=== PATIENT | male | born 1965 | race Caucasian/White ===

== ENCOUNTER 2019-05-04 15:15 | Observation (INO) | payer BC, SELFPAY ==
[2019-05-04] VITALS (9 sets, daily range): BP systolic 138–154; BP diastolic 74–94; PULSE 64–89; RESP 15–18; TEMP 36.1–36.7; O2SAT 95–99; BMI 26.4; BMI 26.5; BMI 25.6
--- NOTE | 2019-05-04 15:46 | EKG12_ITS ---
Test Reason : CP Blood Pressure : / mmHG Vent. Rate : 069 BPM Atrial Rate : 069 BPM P-R Int : 158 ms QRS Dur : 098 ms QT Int : 410 ms P-R-T Axes : 064 039 020 degrees QTc Int : 439 ms Normal sinus rhythm Normal ECG Confirmed by LAYA VINCENT, RONY ([id number]), mapping editor VALERIE CHAN ([id number]) on 05/08/2019 9:05:17 AM Referred By: No Primary Care Physician Confirmed By:RONY ASIF MD
--- NOTE | 2019-05-04 15:46 | RAD_ITS ---
STUDY: X-RAY CHEST REASON FOR EXAM: Male, 54 years old. CHEST PAIN, TIGHTNESS ON AND OFF X 1 WEEK TECHNIQUE: Portable chest. COMPARISON: None. FINDINGS: The lungs are clear and expanded. There is no demonstrated pleural abnormality. Normal size heart. Normal mediastinum and laura. Normal visualized pulmonary arteries. Normal visualized aortic arch and descending thoracic aorta. Normal visualized thoracic spine. Normal visualized ribs, clavicles, and shoulders. There is no demonstrated abnormality of the visualized soft tissue structures of the upper abdomen. RAD/Chest 1 View (Portable) IMPRESSION: Normal x-ray examination of the chest. Electronically Signed: Diane Howell MD at 16:03 EST Tel , Service support ,
--- NOTE | 2019-05-04 15:48 | ED.VISSUMM ---
- ER Visit Summary Date of Service: 05/04/19 Chief Complaint: Chest pain History of Present Illness: The patient is a 54 M presenting with chest pain. Patient states this has been intermittent over the past couple of days. He has associated shortness of breath, dizziness. He states it is worsened with walking. At worst it is 4 out of 10, currently 1 out of 10. He describes a pressure sensation and heaviness mid chest. The pain occasionally radiates to the left side of his jaw. He is not a smoker. He denies CAD risk factors. He does not see a physician regularly. Physical Examination: Vitals are stable. Patient is afebrile. Alert no acute distress. HEENT exam is unremarkable. Neck is supple. Lungs are clear and equal bilaterally. Heart is regular rate and rhythm. Abdomen is soft nontender nondistended. Extremities are unremarkable. Skin is warm and dry. No focal neurologic deficit. Remainder of exam is unremarkable. Emergency Department Course and Treatment: Patient was given aspirin on arrival. EKG is sinus rhythm rate of 69 with no acute ischemic changes. Chest x-ray shows no acute process. CBC, chemistries unremarkable. Troponin is negative. Patient is resting comfortably on reevaluation. Will discuss with hospitalist for observation. Disposition: Observation Impression: Chest pain This note was generated with [employer] dictation software. It may contain incorrect words, spelling, and punctuation that were not noted in review of the chart prior to signing
[2019-05-04] MEDS: Aspirin 81 MG TAB.CHEW 324 MG PO (15:57)
[2019-05-04 16:15] LABS: Absolute Lymphocyte Count 1.57 X10^3/uL (0.83-4.51); Absolute Neutrophil Count 5.1 X10^3/uL (2.0-7.7); Basophil# 0.04 X10^3/uL; Basophil% 0.5 % (0-1); Eosinophil# 0.08 X10^3/uL; Eosinophils% 1.1 % (0-5); Hematocrit 44.7 % (40-54); Hemoglobin 15.2 g/dL (13.0-16.5); Lymphocyte # 1.57 X10^3/ul (4.0); Lymphocyte % 21.2 % (19-41); Mean Corpuscular Hgb 30.2 pg (27.0-32.0); Mean Corpuscular Volume 88.7 fL (80-94); Mean Platelet Vol. 11.6 fl (6.2-12.0); Monocyte# 0.58 X10^3/uL; Monocyte% 7.8 % (0-10); NRBC Flagged by Analyzer 0 % (0-5); Neutrophil # 5.12 X10^3/uL (2.7-7.7); Neutrophil % 69.1 % (47-70); Platelet Count 153 K/mm3 (150-450); RBC Distribution Width CV 12.7 % (11.6-14.6); RBC Distribution Width SD 41.2 fl (35.1-43.9); Red Blood Count 5.04 M/mm3 (4.6-6.2); White Blood Count 7.4 K/mm3 (4.4-11.0)
[2019-05-04 16:26] LABS: Anion Gap 5 (5-15); BUN 16 mg/dL (7-18); BUN/Creat Ratio 14.8 RATIO (10-20); Calcium,Total 9.5 mg/dL (8.5-10.1); Chloride 106 mmol/L (98-107); Creatinine, Serum 1.08 mg/dL (0.70-1.30); EST Glomerular Filtration Rate 75 mL/min (>60); Est Glom Filt Rate - Afr Amer 91 mL/min (>60); Estimated Creatinine Clearance 91.28 ml/min; Glucose 99 mg/dL (74-106); Potassium 3.9 mmol/L (3.5-5.1); Sodium Level 141 mmol/L (136-145)
--- NOTE | 2019-05-04 17:13 | HP.PCM_ITS ---
<Felipa Khalil - Last Filed: 05/04/19 17:32> Problem List (1) Chest pain Status: Acute History of Present Illness Date of Admission: 05/04/19 Chief Complaint: Chest pain, dizziness. The patient is a 54 year old M who presents the emergency room due to chest pain and dizziness intermittently. Patient reports since last Tuesday he has felt foggy with mild dizziness upon standing and with ambulation. He also reports intermittent tightness across to his chest which does seem to be worse with exertion however he also states he notices it more when he is resting in the evening. He denies palpitations, pain radiation. He denies associated shortness of breath although he reports while driving today he did have an episode where he panicked and had trouble catching his breath which quickly resolved. Patient denies any history of heart disease or prior work-up related to his heart. He denies syncope, presyncope. He denies any other past medical history. Past Medical History Allergies No Known Allergies Allergy (Verified 05/04/19 15:16) Home Medications: Ambulatory Orders Medication Instructions Recorded NK 05/04/19 Surgical History: - - Cholecystectomy, groin hernia repair Psychiatric History: No pertinent psych hx Lives: Spouse/ Significant Other Smoking Status: Former smoker Tobacco Use: Non-smoker Alcohol: None Drugs: None - *Family History Maternal History Items: - - Patient reports he suspects maternal heart issues but does not know any specific heart disease that she had. Paternal History Items: - - Pancreatic cancer, diabetes Review of Systems Constitutional: Denies: Chills, Fever, Weight Change HEENT: Denies: Head Aches, Sinus Congestion, Sinus Drainage Cardiovascular: Reports: Chest Pain, Light Headedness. Denies: Edema, Palpitations, Syncope Respiratory: Denies: Cough, Shortness of breath at rest, Sputum production Gastrointestinal: Denies: Abdominal Pain, Nausea, Vomiting Genitourinary: Denies: Dysuria Musculoskeletal: Denies: Joint Pain, Joint Tenderness Skin: Denies: Rash, Wounds Neurological: Denies: Numbness, Tingling, Focal weakness Psychiatric: Denies: Anxiety, Depression, Homicidal Ideations, Suicidal Ideations Hematologic/ Lymphatic: Denies: Easy Bruising, Easy Bleeding VTE Information - Inpt Only VTE Present on Admission: No VTE Mechan Device Prophylaxis: None VTE Pharm Prophylaxis ordered?: No Reason prophylaxis not ordered:: Treatment Not Indicated Patient Problems: Active and Suspected Problems Chest pain (Acute) - Physical Exam Vitals/I&O's: Vital Signs Temp Pulse Resp BP Pulse Ox 97.7 F L 66 15 147/91 H 97 05/04/19 15:17 05/04/19 17:03 05/04/19 17:03 05/04/19 17:03 05/04/19 17:03 Oxygen Delivery Method Room Air Weight: 211 lb 10.3 oz Body Mass Index (BMI) 26.4 General: Alert, Oriented x3, Cooperative HEENT: Atraumatic, PERRLA, EOMI, Normocephalic Neck: Supple, No JVD, Negative Carotid Bruits Lungs: Clear to auscultation, Normal air movement Cardiovascular: Regular rate, Regular Rhythm, Normal S1, Normal S2, No murmurs Abdomen: Bowel Sounds Present, Soft, Non Tender, Non-Distended Extremities: No clubbing, No cyanosis, No edema, Capillary Refill Less than 3 Seconds Skin: No rashes, No breakdown Musculoskeletal: No Tenderness to Palpation of Joints or Extremities Neurological: Cranial nerves II-XII grossly intact, Neuro grossly intact Psych/Mental Status: Normal Affect, Appropriate Laboratory Results 05/04/19 15:20: WBC 7.4, RBC 5.04, Hgb 15.2, Hct 44.7, MCV 88.7, MCH 30.2, MCHC 34.0, RDW Std Deviation 41.2, RDW Coeff of Brady 12.7, Plt Count 153, MPV 11.6, Immature Gran % (Auto) 0.300, Neut % (Auto) 69.1, Lymph % (Auto) 21.2, [place] % (Auto) 7.8, Eos % (Auto) 1.1, Baso % (Auto) 0.5, Absolute Neuts (auto) 5.1, Absolute Lymphs (auto) 1.57, Nucleated RBC % 0 05/04/19 15:20: Sodium 141, Potassium 3.9, Chloride 106, Carbon Dioxide 30.0, Anion Gap 5, BUN 16, Creatinine 1.08, Estim Creat Clear Calc 91.28, Est GFR (MDRD) Af Amer 91, Est GFR (MDRD) Non-Af 75, BUN/Creatinine Ratio 14.8, Glucose 99, Calcium 9.5, Troponin I < 0.015 Assessment/Plan All Active Problems Chest pain (Acute) 1. Atypical chest pain-rule out ACS. EKG without acute changes. Chest x-ray unremarkable. Initial troponin negative. Trend enzymes. CBC and BMP unremarkable. Stress test in a.m. Check orthostatic vitals. Check TSH, mag. Lipid panel in a.m. 2. Mildly increased blood pressure-suspect secondary to anxiety which may be contributing to #1 as well. Monitor blood pressure overnight. PRN hydralazine for systolic blood pressure greater than 160. DVT prophylaxis-not indicated, low risk-early ambulation. This patient was seen by VERONICA Chapa under the supervision of Dr. Bradley. <Chelsie Bradley - Last Filed: 05/04/19 18:23> History of Present Illness The patient is a 54 year old M [] Past Medical History Allergies No Known Allergies Allergy (Verified 05/04/19 15:16) - Physical Exam Vitals/I&O's: Vital Signs Temp Pulse Resp BP Pulse Ox 97 F L 73 16 141/94 H 99 05/04/19 17:41 05/04/19 17:41 05/04/19 17:41 05/04/19 17:41 05/04/19 17:41 Oxygen Delivery Method Room Air Weight: 205 lb 4.006 oz Body Mass Index (BMI) 25.6 Laboratory Results 05/04/19 15:20: WBC 7.4, RBC 5.04, Hgb 15.2, Hct 44.7, MCV 88.7, MCH 30.2, MCHC 34.0, RDW Std Deviation 41.2, RDW Coeff of Brady 12.7, Plt Count 153, MPV 11.6, Immature Gran % (Auto) 0.300, Neut % (Auto) 69.1, Lymph % (Auto) 21.2, [place] % (Auto) 7.8, Eos % (Auto) 1.1, Baso % (Auto) 0.5, Absolute Neuts (auto) 5.1, Absolute Lymphs (auto) 1.57, Nucleated RBC % 0 05/04/19 15:20: Sodium 141, Potassium 3.9, Chloride 106, Carbon Dioxide 30.0, Anion Gap 5, BUN 16, Creatinine 1.08, Estim Creat Clear Calc 91.28, Est GFR (MDRD) Af Amer 91, Est GFR (MDRD) Non-Af 75, BUN/Creatinine Ratio 14.8, Glucose 99, Calcium 9.5, Troponin I < 0.015 05/04/19 15:20: Magnesium 2.1, TSH 2.06 Current Medications Acetaminophen (Tylenol) 650 mg PO Q6H PRN PRN PRN Reason: Pain Score 1-3/Temp > 100.7 F Aspirin (Ecotrin) 81 mg PO DAILY@0800 JOHN Hydralazine HCl (Apresoline Iv) 5 mg IV Q6H PRN PRN PRN Reason: BLOOD PRESSURE Ondansetron HCl (Zofran) 4 mg IV Q8H PRN PRN PRN Reason: NAUSEA/VOMITING Oxycodone HCl (Oxyir) 5 mg PO Q4H PRN PRN PRN Reason: Pain Score 4-5/10 Sodium Chloride () 10 - 40 ml IV UD PRN PRN Reason: SALINE FLUSH Assessment/Plan Patient seen by Felipa Khalil NP-C under my supervision. Patient is a 54-year-old male admitted with complaint of chest pain. Patient has not seen a physician in nearly 10 years and as far as he knows he does not have any active or chronic medical conditions. Chest pain has been going on for about a week now but gradually worsened. It was retrosternal and pressure-like and he described it as a tightness across his chest. He states it gets better when he rests whilst watching TV and is aggravated by exertion. He had most of shortness of breath though he said while driving today he thought he had a panic attack which made the pain worse. Review of symptoms otherwise negative. He has no personal family history of any heart disease. Initial troponin was negative and EKG showed no acute ST changes. He has been admitted to be managed for chest pain rule out ACS. o/e: Vital Signs Height 6 ft 3 in Weight: 205 lb 4.006 oz Weight in Pounds 205.3 lbs Pulse Ox 99 Temperature 97 F Pulse Rate 73 Respiratory Rate 16 Blood Pressure 141/94 Blood Pressure Position Semi-Fowlers General: Alert, Oriented x3, Cooperative, anxious HEENT: Atraumatic, PERRLA, EOMI, Normocephalic Neck: Supple, No JVD, Negative Carotid Bruits Lungs: Clear to auscultation, Normal air movement Cardiovascular: Regular rate, Regular Rhythm, Normal S1, Normal S2, No murmurs Abdomen: Bowel Sounds Present, Soft, Non Tender, Non-Distended Extremities: No clubbing, No cyanosis, No edema, Capillary Refill Less than 3 Seconds Skin: No rashes, No breakdown Musculoskeletal: No Tenderness to Palpation of Joints or Extremities Neurological: Cranial nerves II-XII grossly intact, Neuro grossly intact Psych/Mental Status: anxious Plan is to admit to PCU. Cycle troponins. Sublingual nitroglycerin as needed. P.o. aspirin 81 mg daily. If troponins are negative, for stress test tomorrow. Of note, patient's blood pressure was in the 140s and 150s systolic. He has no known hypertension and in light of his anxiety, this may be whitecoat hypertension was in the hospital. We will hold off on p.o. blood pressure medications for now unless blood pressure trends upwards. IV hydralazine PRN for elevated blood pressure more than 160 systolic. To follow with PCP to assess if he really has hypertension in the community setting for medication to be started as appropriate when he is ready for discharge. Rest of management as per VERONICA Chapa's notes which are reviewed and endorsed. Code Visit OBSV E&M: [id number] Initial observation care L2
--- NOTE | 2019-05-04 17:45 | EKG12_ITS ---
Test Reason : CP ADMISSION Blood Pressure : / mmHG Vent. Rate : 061 BPM Atrial Rate : 061 BPM P-R Int : 160 ms QRS Dur : 092 ms QT Int : 418 ms P-R-T Axes : 007 028 015 degrees QTc Int : 420 ms Normal sinus rhythm Nonspecific ST/T wave abnormality Confirmed by MARISA VINCENT, MARC ([id number]), editorial clerk VALERIE CHAN ([id number]) on 05/09/2019 11:11:59 AM Referred By: No Primary Care Physician Confirmed By:MARC CUNNINGHAM MD
[2019-05-04 18:15] LABS: Magnesium 2.1 mg/dL (1.6-2.6); Thyroid Stim Hormone (TSH) 2.06 uIU/mL (0.358-3.74)
[2019-05-05 02:59] VITALS: PULSE 67
[2019-05-05 03:50] VITALS: BP 113/78; BP 116/80; BP 131/73; PULSE 67; PULSE 72; PULSE 83; RESP 16; TEMP 36.4; O2SAT 98
[2019-05-05] MEDS: Aspirin E.C. 81 MG Tablet PO (05:17)
--- NOTE | 2019-05-05 05:55 | EKG12_ITS ---
Test Reason : AM EKG Blood Pressure : / mmHG Vent. Rate : 067 BPM Atrial Rate : 067 BPM P-R Int : 162 ms QRS Dur : 100 ms QT Int : 414 ms P-R-T Axes : 065 026 016 degrees QTc Int : 437 ms Normal sinus rhythm with sinus arrhythmia Normal ECG Confirmed by MARISA VINCENT, MARC ([id number]), electronic news gathering editor VALERIE CHAN ([id number]) on 05/09/2019 10:11:10 AM Referred By: No Primary Care Physician Confirmed By:MARC CUNNINGHAM MD
--- NOTE | 2019-05-05 05:55 | NM_ITS ---
CLINICAL: 54-year-old male with reported history of chest discomfort and lightheadedness. REST-MAXIMAL STRESS 99mTc SESTAMIBI MYOCARDIAL PERFUSION SPECT COMPARISON: None available FINDINGS: Following the intravenous administration of 14.2 mCi of 99m Tc sestamibi, the resting myocardial perfusion acquisitions demonstrate uniform radiopharmaceutical concentration throughout all left ventricular segments. After exercising on the treadmill for 9 minutes and 1 seconds, to a maximum heart rate of 184 beats per minute and following the intravenous administration of 42.6 mCi of 99m Tc sestamibi, the post stress myocardial perfusion images reveal likewise normal perfusion throughout all left ventricular myocardial segments. The post stress resting left ventricular ejection fraction is calculated to be 65.0 % by gated SPECT technique. Wall motion and end systolic thickening are considered normal. [place]/Nuclear Stress Test - Treadmil IMPRESSION: 1. NORMAL REST-MAXIMAL STRESS 99m Tc SESTAMIBI MYOCARDIAL PERFUSION SPECT. A. No evidence of maximal exercise induced left ventricular ischemia. B. Preservation of resting left ventricular systolic function. (Pat et al, J Nucl Med 37: 105P, 1995). Electronically Signed: Parmjit Parisi DO at 13:42 EST Tel , Service support ,
[2019-05-05 06:45] VITALS: PULSE 74
[2019-05-05 07:29] VITALS: BP 139/87; PULSE 64; RESP 16; TEMP 36.5; O2SAT 97
[2019-05-05 11:02] VITALS: PULSE 104
--- NOTE | 2019-05-05 11:15 | DCINST_ITS ---
- Discharge Diagnoses Current Active Problems: Current Active and Chronic Problems Chest pain (Acute) You will use the following diet at home:: No restrictions Discharge Activity: Return to Normal Activity Call your doctor if you observe: Shortness of breath, Dizziness, Fainting spells, Chest pain Allergies/Adverse Reactions: Allergies No Known Allergies Allergy (Verified 05/04/19 15:16) Medications to take at Discharge NK 05/04/19 Primary Care Physician: Care Physician,No Primary [Primary Care Provider] - Please follow up with your Primary Care Physician in: 1 Week Test Results: Test results from this visit will be discussed in further detail at your follow- up appointment, if applicable. Proposed Discharge Date: 05/05/19
--- NOTE | 2019-05-05 11:16 | DS.PCM_ITS ---
<Felipa Khalil - Last Filed: 05/05/19 13:58> Discharge Date and Diagnosis Date of Admission: 05/04/19 Date of Discharge: 05/05/19 - Primary Discharge Diagnosis Active and Suspected Problems 1. Atypical chest pain-ACS ruled out. 2. Mildly increased blood pressure-improved. Hospital Course and Treatment Imaging Results: Diagnostic Data Chest X-Ray 05/04/19 15:46 IMPRESSION: Normal x-ray examination of the chest. Electronically Signed: Diane Howell MD at 16:03 EST Tel , Service support , Operations: None Procedures: Stress test Summary of Care Provided: The patient is a 54 year old M admitted 05/04/2019 due to chest pain and dizziness. 1. Atypical chest pain-ACS ruled out. EKG without acute changes. Chest x-ray unremarkable. Troponin negative. Patient underwent stress test which was negative for ischemia. Suspect presenting symptoms musculoskeletal in nature versus anxiety or combination of both. Follow-up with primary care provider in 1 week. 2. Mildly increased blood pressure-suspect secondary to anxiety which may be contributing to #1 as well. Blood pressure improved. Recommend further monitoring by primary care physician. General: Alert, Oriented x3, Cooperative HEENT: Atraumatic, PERRLA, EOMI, Normocephalic Neck: Supple, No JVD, Negative Carotid Bruits Lungs: Clear to auscultation, Normal air movement Cardiovascular: Regular rate, Regular Rhythm, Normal S1, Normal S2, No murmurs Abdomen: Bowel Sounds Present, Soft, Non Tender, Non-Distended Extremities: No clubbing, No cyanosis, No edema, Capillary Refill Less than 3 Seconds Skin: No rashes, No breakdown Musculoskeletal: No Tenderness to Palpation of Joints or Extremities Neurological: Cranial nerves II-XII grossly intact, Neuro grossly intact Psych/Mental Status: Normal Affect, Appropriate Patient seen and examined prior to discharge. Physical assessment as noted above. Patient is stable for discharge with follow up recommendations as noted above. This patient was seen by VERONICA Chapa under the supervision of Dr. Medina. - Physical Exam Vitals/I&O's: Vital Signs Temp Pulse Resp BP Pulse Ox 97.7 F L 64 16 139/87 H 97 05/05/19 07:29 05/05/19 07:29 05/05/19 07:29 05/05/19 07:29 05/05/19 07:29 Oxygen Delivery Method Room Air Weight: 205 lb 4.006 oz Body Mass Index (BMI) 25.6 Orthostatic Vital Signs Start: 05/04/19 18:51 Freq: q24h Status: Active Protocol: Activity Type Activity Date Activity User E-Sign Co-Sign Detail Recorded Client Recorded Date Recorded By Document 05/05/19 03:50 [facility] [id number] 05/05/19 03:50 [facility] 05/05/19 03:50 Orthostatic Vitals Standing -Blood Pressure (90/60-120/80) 113/78 -Extremity Use Left Arm -Pulse Rate (60-100) 83 Sitting -Blood Pressure (90/60-120/80) 116/80 -Extremity Use Left Arm -Pulse Rate (60-100) 72 Lying -Blood Pressure (90/60-120/80) 131/73 H -Extremity Use Left Arm -Pulse Rate (60-100) 67 Intake and Output for Last 24 Hours 05/03/19 05/04/19 05/05/19 23:59 23:59 23:59 Intake Total 130 / 190 60 / 60 Balance 130 / 190 60 / 60 Laboratory Results 05/04/19 15:20: WBC 7.4, RBC 5.04, Hgb 15.2, Hct 44.7, MCV 88.7, MCH 30.2, MCHC 34.0, RDW Std Deviation 41.2, RDW Coeff of Brady 12.7, Plt Count 153, MPV 11.6, Immature Gran % (Auto) 0.300, Neut % (Auto) 69.1, Lymph % (Auto) 21.2, [place] % (Auto) 7.8, Eos % (Auto) 1.1, Baso % (Auto) 0.5, Absolute Neuts (auto) 5.1, Absolute Lymphs (auto) 1.57, Nucleated RBC % 0 05/04/19 15:20: Sodium 141, Potassium 3.9, Chloride 106, Carbon Dioxide 30.0, Anion Gap 5, BUN 16, Creatinine 1.08, Estim Creat Clear Calc 91.28, Est GFR (MDRD) Af Amer 91, Est GFR (MDRD) Non-Af 75, BUN/Creatinine Ratio 14.8, Glucose 99, Calcium 9.5, Troponin I < 0.015 05/04/19 15:20: Magnesium 2.1, TSH 2.06 05/04/19 18:30: Troponin I < 0.015 05/04/19 21:02: Troponin I < 0.015 Current Medications Acetaminophen (Tylenol) 650 mg PO Q6H PRN PRN PRN Reason: Pain Score 1-3/Temp > 100.7 F Aspirin (Ecotrin) 81 mg PO DAILY@0800 [facility] Last Admin: 05/05/19 05:17 Dose: 81 mg Documented by: Hydralazine HCl (Apresoline Iv) 5 mg IV Q6H PRN PRN PRN Reason: BLOOD PRESSURE Ondansetron HCl (Zofran) 4 mg IV Q8H PRN PRN PRN Reason: NAUSEA/VOMITING Oxycodone HCl (Oxyir) 5 mg PO Q4H PRN PRN PRN Reason: Pain Score 4-10/10 Sodium Chloride () 10 - 40 ml IV UD PRN PRN Reason: SALINE FLUSH Discharge Diet: No Restrictions Discharge Activity: Return to Normal Activity Call your doctor if you observe: Shortness of breath, Dizziness, Fainting spells, Chest pain Home Medications: Medications to take at Discharge NK 05/04/19 Primary Care Physician: Care Physician,No Primary [Primary Care Provider] - Please follow up with your Primary Care Physician in: 1 Week Disposition: Home Minutes spent on discharge:: 35 Patient Condition:: Stable Medical Necessity - Tobacco Use Smoking Status: Never smoker Tobacco Use: Non-smoker Meaningful Use Info Meaningful Use Diagnoses (Choose all that apply): None applicable <Andrey Medina - Last Filed: 05/05/19 14:42> Hospital Course and Treatment Imaging Results: 05/05/19 05:55 Nuclear Stress Test - Treadmil [NM] AM (NON MEDS) Summary of Care Provided: This patient was seen in conjunction with VERONICA Chapa . I have independently interviewed and examined the patient and reviewed pertinent historical, laboratory, and other data. Please refer to VERONICA Chapa note for details of this patient's presentation, findings, and recommendations. I have reviewed VERONICA Chapa note and concur with documented findings. In brief, patient is a 54-year-old gentleman admitted with chest pain. CA was ruled out with serial cardiac enzymes underwent a nuclear stress test which was negative for stress-induced ischemia. Subsequently discharged and instructed to follow-up with PCP for subsequent care Hospital course; as documented above - Physical Exam Vitals/I&O's: Vital Signs Temp Pulse Resp BP Pulse Ox 97.6 F L 71 16 139/91 H 97 05/05/19 13:29 05/05/19 13:29 05/05/19 13:29 05/05/19 13:29 05/05/19 13:29 Oxygen Delivery Method Room Air Weight: 93.1 kg Body Mass Index (BMI) 25.6 Orthostatic Vital Signs Start: 05/04/19 18:51 Freq: q24h Status: Active Protocol: Activity Type Activity Date Activity User E-Sign Co-Sign Detail Recorded Client Recorded Date Recorded By Document 05/05/19 03:50 [facility] [id number] 05/05/19 03:50 [facility] 05/05/19 03:50 Orthostatic Vitals Standing -Blood Pressure (90/60-120/80) 113/78 -Extremity Use Left Arm -Pulse Rate (60-100) 83 Sitting -Blood Pressure (90/60-120/80) 116/80 -Extremity Use Left Arm -Pulse Rate (60-100) 72 Lying -Blood Pressure (90/60-120/80) 131/73 H -Extremity Use Left Arm -Pulse Rate (60-100) 67 Intake and Output for Last 24 Hours 05/03/19 05/04/19 05/05/19 23:59 23:59 23:59 Intake Total 130 / 190 300 / 300 Balance 130 / 190 300 / 300 Laboratory Results 05/04/19 15:20: WBC 7.4, RBC 5.04, Hgb 15.2, Hct 44.7, MCV 88.7, MCH 30.2, MCHC 34.0, RDW Std Deviation 41.2, RDW Coeff of Brady 12.7, Plt Count 153, MPV 11.6, Immature Gran % (Auto) 0.300, Neut % (Auto) 69.1, Lymph % (Auto) 21.2, [place] % (Auto) 7.8, Eos % (Auto) 1.1, Baso % (Auto) 0.5, Absolute Neuts (auto) 5.1, Absolute Lymphs (auto) 1.57, Nucleated RBC % 0 05/04/19 15:20: Sodium 141, Potassium 3.9, Chloride 106, Carbon Dioxide 30.0, Anion Gap 5, BUN 16, Creatinine 1.08, Estim Creat Clear Calc 91.28, Est GFR (MDRD) Af Amer 91, Est GFR (MDRD) Non-Af 75, BUN/Creatinine Ratio 14.8, Glucose 99, Calcium 9.5, Troponin I < 0.015 05/04/19 15:20: Magnesium 2.1, TSH 2.06 05/04/19 18:30: Troponin I < 0.015 05/04/19 21:02: Troponin I < 0.015 05/05/19 11:20: Triglycerides 102, Cholesterol 137, LDL Cholesterol 81, VLDL Cholesterol 20, HDL Cholesterol 36 L Current Medications Acetaminophen (Tylenol) 650 mg PO Q6H PRN PRN PRN Reason: Pain Score 1-3/Temp > 100.7 F Aspirin (Ecotrin) 81 mg PO DAILY@0800 [facility] Last Admin: 05/05/19 05:17 Dose: 81 mg Documented by: Hydralazine HCl (Apresoline Iv) 5 mg IV Q6H PRN PRN PRN Reason: BLOOD PRESSURE Ondansetron HCl (Zofran) 4 mg IV Q8H PRN PRN PRN Reason: NAUSEA/VOMITING Oxycodone HCl (Oxyir) 5 mg PO Q4H PRN PRN PRN Reason: Pain Score 4-10/10 Sodium Chloride () 10 - 40 ml IV UD PRN PRN Reason: SALINE FLUSH Code Visit OBSV E&M: [id number] Observation care discharge
[2019-05-05 11:57] LABS: Cholesterol 137 mg/dL (200); High Density Lipoprotein 36 mg/dL; Triglycerides 102 mg/dL; Very Low Density Lipoprotein 20 mg/dL (5-40)
--- NOTE | 2019-05-05 12:04 | CASEMGMT ---
Social Work Consult: No PCP Informant: Matt Leo Met with patient and patient spouse in room. Introduced self and social worker clinical role. Patient agreeable to speak with this social worker clinical. Patient stating no concerns with returning to home and confirming to have no PCP. This social worker clinical providing patient with list of PCP's and educated patient on value and purpose of having a PCP. Patient voicing understanding. Lizzie Veliz MSW, [place]
[2019-05-05 13:29] VITALS: BP 139/91; PULSE 71; RESP 16; TEMP 36.4; O2SAT 97
--- NOTE | 2019-05-05 14:38 | STRESSREP ---
Stress Test Report EKG stress test Protoco Used is Kalyan protocol EKG showed sinus rhythm at a rate of 62 beats a minute otherwise normal ECG record blood pressure was 132/80 mmHg next patient was able exercised on Kalyan protocol for total duration of 9 minutes achieving a peak heart rate of 184 bpm which is equal to 112% of age-predicted maximal heart rate. Patient had no symptoms or chest discomfort the test were terminated the patient reaching adequate target heart rate and for symptoms of fatigue. Review of the EKG during the stress test showed no new significant ST changes that would meet the criteria for provokable ischemia Final Impression 1. Above average functional capacity achieving 10 METs of workload 2. appropriate hypertensive and chronotropic response with exercise 3. No symptoms of chest discomfort during or in the recovery phase 4. No new EKG changes noted other than rare monomorphic PVCs 5. Exercise EKG stress test no evidence for provokable ischemia 6. Rest and post stress myocardial perfusion images will be reported separately by radiology.
== END 2019-05-05 11:16 | disposition home or self-care (01) ==
LOC: ED 16:37 → PCU 17:11
PROVIDERS: Nurse Practitioner Family; Admitting Provider Student in an Organized Health Care Education/Training Program; Emergency Provider Emergency Medicine; Visit Provider Internal Medicine
DX: R07.89 Other chest pain (principal); R03.0 Elevated blood-pressure reading, without diagnosis of hypertension; R42 Dizziness and giddiness; R06.02 Shortness of breath; Z87.891 Personal history of nicotine dependence; I49.8 Other specified cardiac arrhythmias
CPT/HCPCS: 36415; 71045; 78452; 80048; 80061; 83735; 84443; 84484; 85025; 93005; 93017; 99218; 99285; A9500; A4216; G0378

== ENCOUNTER → 2019-07-06 10:28 | Outpatient (CLI) | payer BC, SELFPAY ==
[2019-06-19 08:10] VITALS: BMI 25.6
[2019-07-06 12:37] LABS: Absolute Lymphocyte Count 1.22 X10^3/uL (0.83-4.51); Absolute Neutrophil Count 3.2 X10^3/uL (2.0-7.7); Basophil# 0.03 X10^3/uL; Basophil% 0.6 % (0-1); Hematocrit 44.1 % (40-54); Hemoglobin 14.8 g/dL (13.0-16.5); Lymphocyte # 1.22 X10^3/ul (4.0); Lymphocyte % 24.4 % (19-41); Mean Corp Hgb Conc 33.6 g/dL (32-36); Mean Corpuscular Hgb 30.1 pg (27.0-32.0); Mean Corpuscular Volume 89.8 fL (80-94); Mean Platelet Vol. 12.3 fl (6.2-12.0); Monocyte# 0.42 X10^3/uL; Monocyte% 8.4 % (0-10); NRBC Flagged by Analyzer 0 % (0-5); Neutrophil % 64.2 % (47-70); Platelet Count 133 K/mm3 (150-450); RBC Distribution Width CV 13.6 % (11.6-14.6); RBC Distribution Width SD 44.9 fl (35.1-43.9); Red Blood Count 4.91 M/mm3 (4.6-6.2)
[2019-07-06 13:10] LABS: ALB/GLOB Ratio 1.6 RATIO (0.9-2.4); AST(SGOT) 15 U/L (15-37); Alanine Aminotransfer ALT/SGPT 25 U/L (16-61); Albumin, Serum 4.2 g/dL (3.2-5.0); Alkaline Phosphatase 81 U/L (45-117); Anion Gap 4 (5-15); BUN 15 mg/dL (7-18); BUN/Creat Ratio 15.2 RATIO (10-20); Chloride 109 mmol/L (98-107); Cholesterol 115 mg/dL (200); Creatinine, Serum 0.99 mg/dL (0.70-1.30); EST Glomerular Filtration Rate 83 mL/min (>60); Est Glom Filt Rate - Afr Amer 101 mL/min (>60); Globulin 2.7 g/dL (2.2-4.2); Glucose 75 mg/dL (74-106); High Density Lipoprotein 36 mg/dL; PSA,Total - Annual Screen 1.89 ng/mL (0.00-4.00); Potassium 4.3 mmol/L (3.5-5.1); Protein, Total 6.9 g/dL (6.4-8.2); Sodium Level 142 mmol/L (136-145); Thyroid Stim Hormone (TSH) 1.09 uIU/mL (0.358-3.74); Triglycerides 116 mg/dL; Very Low Density Lipoprotein 23 mg/dL (5-40)
== END ==
PROVIDERS: PCP Family Medicine; Referring Provider Family Medicine; Visit Provider Family Medicine
DX: Z00.00 Encounter for general adult medical examination without abnormal findings (principal); Z12.5 Encounter for screening for malignant neoplasm of prostate
CPT/HCPCS: 36415; 80053; 80061; 84153; 84443; 85025; G0103

== ENCOUNTER 2019-08-29 07:42 | Day surgery (SDC) | payer BC, SELFPAY ==
[2019-06-19 08:10] VITALS: BMI 25.6
[2019-08-29 08:05] VITALS: BP 144/93; PULSE 73; RESP 16; TEMP 36.6; O2SAT 98; BMI 24.7
--- NOTE | 2019-08-29 08:35 | PCM.HP.BLA ---
History and Physical Date of Admission: 08/29/19 [facility] [address] [place], [place] [address] OFFICE VISIT Date of Service: 06/19/19 MR#: [id number] Acct: [id number] Name: ELMER STRATTON Rep #: [id number] : 1965 Provider: Donal Story MD Age/Sex: 54/M Location: [facility] Status: Signed Intake Vital Signs 06/19/19 Height 6 ft 3 in 06/19/19 Weight: 210 lb 06/19/19 BMI 26.2 06/19/19 BP 137/74 H 06/19/19 Blood Pressure Location Rt brachial 06/19/19 Position Sitting 06/19/19 Respiration 18 06/19/19 Pulse 88 06/19/19 Pulse Source Monitor 06/19/19 Temp 98.5 F 06/19/19 Temp Source Oral 06/19/19 Pulse Oximetry (%) 99 06/19/19 Oxygen Delivery Method room air Intake Visit Reasons: Right Inguinal Hernia Chief Complaint: right inguinal hernia 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 Donal Story MD) Smoking Status: Never smoker alcohol intake: never substance use type: does not use HPI HPI HPI: ELMER STRATTON, is a 54 M who presents to the office today for HPI HPI HPI: ELMER STRATTON, is a 54 M who presents to the office today for Evaluation of a right inguinal hernia as well as a screening colonoscopy. Patient states that he has been moving his bowels without difficulty has not been having any abdominal pain and has never had a colonoscopy. In addition the patient has a right inguinal hernia that he is noticed for quite some time. It has been getting larger he has not noticed any change in his bowel or bladder habits secondary to this. He also states that is been going in and out without difficulty particularly when he lies down ROS General General: No weight change, appetite, fatigue, colon cancer, breast cancer or weakness HEENT HEENT: No difficulty swallowing, eye injury, eye surgery, swollen glands or hoarseness Endo Endocrine: No thyroid disease, diabetes mellitus, thyroid cancer, Hair loss, heat intolerance or cold intolerance Skin Skin: No rash or changing moles Breast Breast: No left breast lump, right breast lump, nipple discharge, breast pain, abnormal mammogram, abnormal US or breast enlargement Musc Musculoskeletal: No back problems, arthritis, rheumatoid arthritis, gout or joint pain Cardio Cardiovascular: No murmur, pacemaker, heart disease, atrial fibrillation, high blood pressure, heart attack, heart stent, palpitations, shortness of breat with exertion or chest pain Psych Psychiatric: No depression, anxiety or hearing voices Resp Respiratory: No shortness of breath, No sleep apnea, No cough, No COPD, No asthma, No emphysema, No wheezing Gastro Gastrointestinal: No abdominal pain, No nausea or vomiting, No diarrhea, No constipation, No blood in stool, No acid reflux, No hemorrhoids, No ulcers, No gallbladder problem, No black,tarry stools Tobias Hematologic: No blood thinners, No blood disorders, No bleeding, No anemia, No blood clots Neuro Neurologic: No system reviewed and no additional complaints, except as docu, No as per HPI, No abnormal walking, No abnormal hearing, No abnormal movements, No abnormal speech, No behavioral changes, No burning sensations, No confusion, No seizure-like activity, No unsteadiness, No dizziness, No localized weakness, No frequent falls, No headache(s), No lack of coordination, No loss of vision, No memory loss, No numbness, No other visual disturbances, No radiating pain, No restless legs, No sensory deficit, No fainting, No tingling, No tremor(s), No weakness, No other Exam Const General: no acute distress, well developed, well hydrated Orientation: oriented to person, oriented to place, oriented to time [facility] Head: normocephalic, atraumatic Ears: external ears normal Mouth: moist mucous membranes Eyes Sclera: sclerae normal Pupils: normal by confrontation Neck Neck: no lymphadenopathy noted Neck mass: No Thyroid: thyroid normal, symmetrical Chest Chest palpation & inspection: normal inspection of the chest Breast Palpation: No nipple discharge Resp Effort & Inspection: normal respiratory effort Auscultation: clear to auscultation bilaterally Percussion: percussion normal Cardio Rate: regular rate Rhythm: regular rhythm Heart Sounds: no murmurs GI Palpation: soft, no hepatosplenomegaly, no masses, tender Rectal Exam: other Other: A large reducible right inguinal hernia is identified. No left inguinal hernias palpated. This had been surgically repaired by myself laparoscopically in the past. Rectal exam deferred. Extrem General: normal to inspection, no clubbing, cyanosis or edema Assessment & Plan Problems 1. Encounter for screening colonoscopy Z12.11 2. Right inguinal hernia K40.90 Plan I have discussed the above with the patient. I have offered the patient colonoscopy for evaluation. I have explained the risks/benefits of the procedure and described the procedure. I have discussed the risks with the patient, including but not limited to: infection, bleeding, perforation of the GI tract requiring emergency surgery, inability to complete the procedure, injury to any internal organs, complications of anesthesia, etc. - the patient understands and agrees to proceed. I have answered all the patient's questions to the patient's satisfaction and the patient has no further questions. The patient has been given instructions for the colon cleansing preparation. My plan is to perform an Open right inguinal hernia repair with mesh repair. The planned surgical procedure was discussed extensively with the patient. The risks, benefits, anticipated outcomes and possible complication were mentioned. The patient understands that all hernia repair surgery has a chance of recurrence and/or chronic post-operative pain. My staff has also explained the procedure in understandable terms and the patient was given the option to take printed material concerning the planned procedure. The patient had the opportunity to ask questions concerning the planned procedure. The patient freely consents to the planned procedure. Orders Orders: Colonoscopy 06/19/19 Coding Level of Care Code Off vis,new,level 3 Diagnoses Encounter for screening colonoscopy Z12.11 Right inguinal hernia K40.90 06/21/19 1309 <Electronically signed by Donal Story MD> Date Donal Jansen Signature: Date (if applicable) CC: Boo Holcomb MD ~ I have re-examined the patient. There are no clinical changes since date of exam.
[2019-08-29] MEDS: Lactated Ringers 1,000 ML 100 ML IV (08:38)
[2019-08-29 09:20] VITALS: BP 106/70; BP 106/71; BP 144/93; PULSE 63; PULSE 65; RESP 14; RESP 16; TEMP 36.4; O2SAT 100; O2SAT 97
--- NOTE | 2019-08-29 09:22 | OP.COLON_ITS ---
Patient Name: Clark Walker Procedure Date: 08/29/2019 8:54 AM Date of : 1965 Age: 54 Procedure: Colonoscopy Indications: Screening for colorectal malignant neoplasm Providers: Donal Story MD Referring MD: Boo Holcomb Medicines: See the Anesthesia note for documentation of the administered medications Patient Profile: This is a 54 year old male. Refer to note in patient chart for documentation of history and physical. Last Colonoscopy: 2007. Complications: No immediate complications. Procedure: Pre-Anesthesia Assessment: - Prior to the procedure, a History and Physical was performed, and patient medications and allergies were reviewed. The patient's tolerance of previous anesthesia was also reviewed. The risks and benefits of the procedure and the sedation options and risks were discussed with the patient. All questions were answered, and informed consent was obtained. Prior Anticoagulants: The patient has taken no previous anticoagulant or antiplatelet agents. ASA Grade Assessment: II - A patient with mild systemic disease. After reviewing the risks and benefits, the patient was deemed in satisfactory condition to undergo the procedure. After I obtained informed consent, the scope was passed under direct vision. Throughout the procedure, the patient's blood pressure, pulse, and oxygen saturations were monitored continuously. The adult colonoscope was introduced through the anus and advanced to 3 cm into the ileum. The colonoscopy was performed without difficulty. The patient tolerated the procedure well. The quality of the bowel preparation was good. Scope In: 9:02:57 AM Scope Withdrawal Time 0 hours 6 minutes 18 seconds Scope Out: 9:16:57 AM Total Procedure Duration Time 0 hours 14 minutes 0 seconds Findings: Non-bleeding internal hemorrhoids were found during retroflexion. The hemorrhoids were mild and small. Multiple small-mouthed diverticula were found in the sigmoid colon, descending colon and transverse colon. There was no evidence of diverticular bleeding. No biopsies or other specimens were collected for this exam. The exam was otherwise without abnormality. Impression: - Non-bleeding internal hemorrhoids. - Mild diverticulosis in the sigmoid colon, in the descending colon and in the transverse colon. There was no evidence of diverticular bleeding. No specimens collected. - The examination was otherwise normal. Recommendation: - Discharge patient to home. - Resume previous diet. - Continue present medications. - Repeat colonoscopy in 10 years for screening purposes. - Return to my office in 1 week. Procedure Code(s): --- Professional --- 90192, Colonoscopy, flexible; diagnostic, including collection of specimen(s) by brushing or washing, when performed (separate procedure) Diagnosis Code(s): --- Professional --- Z12.11, Encounter for screening for malignant neoplasm of colon K64.8, Other hemorrhoids K57.30, Diverticulosis of large intestine without perforation or abscess without bleeding CPT copyright 2017 [employer]. All rights reserved. The codes documented in this report are preliminary and upon jackaroo review may be revised to meet current compliance requirements. MD Donal Hong MD 08/29/2019 9:21:46 AM This report has been signed electronically. Number of Addenda: 0 Note Initiated On: 08/29/2019 8:54 AM
--- NOTE | 2019-08-29 09:22 | OP.CCLET_ITS ---
08/29/2019 Boo Holcomb [address] [place] [address] Re : Colonoscopy procedure for Clark Walker Dear Dr. Holcomb This procedure was performed on Thursday, August 29, 2019. My impressions and recommendations are as follows: Impressions : - Non-bleeding internal hemorrhoids. - Mild diverticulosis in the sigmoid colon, in the descending colon and in the transverse colon. There was no evidence of diverticular bleeding. No specimens collected. - The examination was otherwise normal. Recommendations : - Discharge patient to home. - Resume previous diet. - Continue present medications. - Repeat colonoscopy in 10 years for screening purposes. - Return to my office in 1 week. My findings are described in the full procedure note, which is enclosed. If I can be of further assistance, please feel free to contact me at Doctor phone number(s): , Fax: [phone], Work: . Sincerely, MD Donal Hong MD 08/29/2019 9:21:46 AM This report has been signed electronically.
[2019-08-29 09:30] VITALS: BP 106/72; BP 144/93; PULSE 62; RESP 16; O2SAT 97
[2019-08-29 09:36] VITALS: BP 107/71; BP 144/93; PULSE 61; RESP 16; TEMP 36.5; O2SAT 96
[2019-08-29 10:23] VITALS: BP 144/93
== END 2019-08-29 10:26 | disposition home or self-care (01) ==
LOC: EN 07:43 → AC 07:43
PROVIDERS: PCP Family Medicine; Referring Provider Family Medicine; Visit Provider Surgery
PROC: 0DJD8ZZ Inspection of Lower Intestinal Tract, Via Natural or Artificial Opening Endoscopic (ICD-10-PCS; CPT 45378; principal; 2019-08-29 08:40)
DX: Z12.11 Encounter for screening for malignant neoplasm of colon (principal); K64.8 Other hemorrhoids; K57.30 Diverticulosis of large intestine without perforation or abscess without bleeding; Z90.49 Acquired absence of other specified parts of digestive tract; K40.90 Unilateral inguinal hernia, without obstruction or gangrene, not specified as recurrent
CPT/HCPCS: 45378; J7120; J2405

== ENCOUNTER 2019-12-06 07:39 | Day surgery (SDC) | payer BC, SELFPAY ==
--- NOTE | 2019-11-13 07:54 | HP_ITS ---
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 Donal Story MD) Smoking Status: Never smoker alcohol intake: never substance use type: does not use HPI HPI HPI: ELMER STRATTON, is a 54 M who presents to the office today for HPI HPI Surgical H&P: Yes HPI: ELMER STRATTON, is a 54 M who presents to the office today for a right inguinal hernia that he is noticed for quite some time. It has been getting larger he has not noticed any change in his bowel or bladder habits secondary to this. He also states that is been going in and out without difficulty particularly when he lies down ROS General General: No weight change, appetite, fatigue, colon cancer, breast cancer or weakness HEENT HEENT: No difficulty swallowing, eye injury, eye surgery, swollen glands or hoarseness Endo Endocrine: No thyroid disease, diabetes mellitus, thyroid cancer, Hair loss, heat intolerance or cold intolerance Skin Skin: No rash or changing moles Breast Breast: No left breast lump, right breast lump, nipple discharge, breast pain, abnormal mammogram, abnormal US or breast enlargement Musc Musculoskeletal: No back problems, arthritis, rheumatoid arthritis, gout or joint pain Cardio Cardiovascular: No murmur, pacemaker, heart disease, atrial fibrillation, high blood pressure, heart attack, heart stent, palpitations, shortness of breat with exertion or chest pain Psych Psychiatric: No depression, anxiety or hearing voices Resp Respiratory: No shortness of breath, No sleep apnea, No cough, No COPD, No asthma, No emphysema, No wheezing Gastro Gastrointestinal: No abdominal pain, No nausea or vomiting, No diarrhea, No constipation, No blood in stool, No acid reflux, No hemorrhoids, No ulcers, No gallbladder problem, No black,tarry stools Tobias Hematologic: No blood thinners, No blood disorders, No bleeding, No anemia, No blood clots Neuro Neurologic: No weakness Exam Const General: no acute distress, well developed, well hydrated Orientation: oriented to person, oriented to place, oriented to time [facility] Head: normocephalic, atraumatic Ears: external ears normal Mouth: moist mucous membranes Eyes Sclera: sclerae normal Pupils: normal by confrontation Neck Neck: no lymphadenopathy noted Neck mass: No Thyroid: thyroid normal, symmetrical Chest Chest palpation & inspection: normal inspection of the chest Breast Palpation: No nipple discharge Resp Effort & Inspection: normal respiratory effort Auscultation: clear to auscultation bilaterally Percussion: percussion normal Cardio Rate: regular rate Rhythm: regular rhythm Heart Sounds: no murmurs GI Palpation: soft, no hepatosplenomegaly, no masses, tender Rectal Exam: other Other: A large reducible right inguinal hernia is identified. No left inguinal hernias palpated. This had been surgically repaired by myself laparoscopically in the past. Rectal exam deferred. Extrem General: normal to inspection, no clubbing, cyanosis or edema Assessment & Plan Problems 1. Right inguinal hernia K40.90 Plan My plan is to perform an Open right inguinal hernia repair with mesh. The planned surgical procedure was discussed extensively with the patient. The risks, benefits, anticipated outcomes and possible complication were mentioned. The patient understands that all hernia repair surgery has a chance of recurrence and/or chronic post-operative pain. My staff has also explained the procedure in understandable terms and the patient was given the option to take printed material concerning the planned procedure. The patient had the opportunity to ask questions concerning the planned procedure. The patient freely consents to the planned procedure. Coding Level of Care Code Off vis,est,level 3 Diagnoses Right inguinal hernia K40.90 COVID (Procedure Consent) Procedure Criteria Procedure Criteria: Yes Elective The surgeon/proceduralist and patient have discussed in detail the risk of exposure to and/or potential harm posed by the COVID-19 virus with having a surgery/procedure at this time versus the risk of? delaying the surgery/procedure. It is not possible to know either the risk of delaying the surgery or procedure or chance of getting an infection with perfect accuracy, but a joint decision was made between the patient and the surgeon/proceduralist ?to proceed at this time with the scheduled surgery/procedure as indicated on the consent form. 11/13/1912 <Electronically signed by Donal couch MD> Date _ Donal Story MD I have re-examined the patient. There are no clinical changes since date of exam.
[2019-11-13 07:58] VITALS: BMI 25.1
[2019-12-06] VITALS (7 sets, daily range): BP systolic 133–147; BP diastolic 75–92; PULSE 47–71; RESP 16; TEMP 36.1–36.6; O2SAT 96–100; BMI 25.7
[2019-12-06] MEDS: Lactated Ringers 1,000 ML 100 ML IV (08:29)
--- NOTE | 2019-12-06 08:46 | PCM.DC.HER ---
Discharge Diet: Light diet - advance as tolerated Discharge Activity: Return to Normal Activity, May Drive - when you are no longer taking narcotic pain medications., May Shower - with the bandage in place 1-2 days after surgery. Lifting Restrictions: 20 pounds for 8 weeks. Additional Activity Instructions:: Climbing stairs is fine, walking is encouraged. Sitting in bed may be uncomfortable. Sitting up using your lateral muscles (sitting up sideways) is usually more comfortable. Do not drive, work heavy equipment of sign legal documents for 24 hours. If your hernia repair was an ingunial repair, you may have scrotal swelling, an ice pack and/or athletic support can provide more comfort. Pain medications may cause nausea, you should typically eat light foods as you take your pain medications. Pain medications may also cause constipation. If you have difficulty with this, discuss with your doctor. Call your doctor if your incision/area has: Continuous Slow Oozing, Sudden Increased Bleeding, Increased Pain/ Swelling, Increased Redness, Foul Smelling Discharge Call your doctor if you observe: Fever of 101 or Higher Suture Line Care: Avoid Pulling/Pushing, Avoid Pinching/Bending Additional Dressing/Incision Instructions:: Leave the operative bandage on for 2-3 days. When you remove the bandage, leave the steri-strips on place until your follow up appointment or they fall off. Allergies/Adverse Reactions: Allergies No Known Allergies Allergy (Verified 12/06/19 08:02) Medications to take at Discharge Oxycodone HCl/Acetaminophen [Percocet 5/325] 1 - 2 tablet PO Q4H PRN PRN 6 Days #30 tablet 12/06/19 The following prescriptions were given: Oxycodone HCl/Acetaminophen [Percocet 5/325] 1 - 2 tablet PO Q4H PRN PRN 6 Days #30 tablet PRN Reason: Pain Transmission Status: Received by ELH[facility] MCDANIEL-1956 [facility] Primary Care Physician: Boo Holcomb MD [Primary Care Provider] - Test Results: Test results from this visit will be discussed in further detail at your follow-up appointment, if applicable. Please Follow Up With: Donal Story MD - [phone] When: Plan to have a follow up appointment in 7 days. Call to schedule.
--- NOTE | 2019-12-06 08:47 | OP.PCM_ITS ---
Problem List (1) Right inguinal hernia Status: Acute Report of Operation Date of Procedure: 12/06/19 Pre-Operative Diagnosis: Right inguinal hernia Post-Operative Diagnosis: Same Surgery/Procedure Performed:: Open right inguinal herniorrhaphy with mesh Type of Anesthesia:: General Anesthesiologist: Faisal Lazar Estimated Blood Loss (mL): < 25 cc Description of Procedure: Patient was brought into the operating room. Placed in the supine position. Under excellent general trach intubation the right groin area was sterilely prepped and draped in usual fashion. Local was injected. Right inguinal incision was made. Dissection was carried down to the external oblique fascia. Gelpi retractor was placed in the wound external bleak fascia was open in the right inguinal area. Identified the ilioinguinal nerve I dissected it free and protected it medially. I dissected an extremely large direct inguinal hernia off of the cord and vessel structures. I placed it back into its peritoneal position. There was no hernia on the cord itself. Cord looked viable. Once I had this dissected free I placed an extra large Bard mesh plug into the wound reference #[id number]. Lot number: [id number]. I then placed the onlay mesh down I tacked it to the pubic tubercle with 2 sutures of 0 Prolene around the one s uture along the ilioinguinal ligament superior to the internal ring and then the other one medially along the shelving edge of the transversalis fascia. I placed the ilioinguinal ligament through the keyhole and the cord and vessel structures and I sutured the 2 Prolenes superior to the keyhole making sure I can get my index finger into the hole so that there would be no tension and pressure on the cord and vessel structures. Once this was done I injected local. Extra oblique fascia was brought together with 2-0 Vicryl. Fredi's layer was brought together with 2-0 Vicryl. Deep dermal stitches of 3-0 Vicryl. And a running 4-0 Monocryl on the skin Steri-Strips were applied sterile dressings were applied and the patient tolerated the procedure well. - Admit VTE Documentation VTE Present on Admission: No VTE Mechan Device Prophylaxis: SCD's VTE Pharm Prophylaxis ordered?: No Reason prophylaxis not ordered:: Treatment Not Indicated [id number]: [id number] Prp i/diego init reduc >5 yr
[2019-12-06] MEDS: Cefazolin 2 GM in 0.9% Normal Saline 100 ML IV (09:07)
[2019-12-06] MEDS: Bupivacaine Mpf 0.5% 30 ML VIAL (09:53)
[2019-12-06] MEDS: oxyCODONE 5 MG Tablet PO (12:44)
[2019-12-06] MEDS: Acetaminophen 325 MG Tablet PO (12:44)
== END 2019-12-06 13:30 | disposition home or self-care (01) ==
LOC: SDC 07:40 → AC 07:40
PROVIDERS: Anesthesiology; PCP Family Medicine; Referring Provider Surgery; Visit Provider Surgery
PROC: (CPT 49505; principal; 2019-12-06 09:25)
DX: K40.90 Unilateral inguinal hernia, without obstruction or gangrene, not specified as recurrent (principal)
CPT/HCPCS: 49505; 87635; 94799; J7120; C1781; J2405; U0003

== ENCOUNTER 2020-07-03 13:26 | Outpatient (RCR) | payer BC, SELFPAY ==
[2019-12-06 08:04] VITALS: BMI 25.7
[2020-07-03] MEDS: COVID-19 VACC, MRNA(PFIZER)/PF 30 MCG/0.3 ML SYRINGE IM (12:10)
[2020-07-24] MEDS: COVID-19 VACC, MRNA(PFIZER)/PF 30 MCG/0.3 ML SYRINGE IM (11:58)
== END 2020-07-03 23:59 ==
LOC: IMMUN 13:26
PROVIDERS: PCP Family Medicine; Visit Provider Family Medicine
DX: Z23 Encounter for immunization (principal)
CPT/HCPCS: 0001A; 0002A; 91300

== ENCOUNTER → 2023-11-17 | Outpatient (CLI) | payer BC, SELFPAY ==
[2023-11-17 14:40] LABS: Squamous Epithelial Cells - UA 0 SEEN /hpf (0-5)
[2023-11-17 17:52] LABS: Absolute Lymphocyte Count 1.17 X10^3/uL (0.83-4.51); Basophil# 0.06 X10^3/uL; Eosinophils% 1.7 % (0-5); Hematocrit 42.6 % (40-54); Hemoglobin 14.2 g/dL (13.0-16.5); Lymphocyte # 1.17 X10^3/ul (0.83-4.51); Lymphocyte % 20.1 % (19-41); Mean Corp Hgb Conc 33.3 g/dL (32-36); Mean Corpuscular Hgb 29.6 pg (27.0-32.0); Mean Corpuscular Volume 88.9 fL (80-94); Mean Platelet Vol. 11.7 fl (6.2-12.0); Monocyte# 0.46 X10^3/uL; Monocyte% 7.9 % (0-10); NRBC Flagged by Analyzer 0 % (0-5); Neutrophil % 68.8 % (47-70); Platelet Count 165 K/mm3 (150-450); RBC Distribution Width CV 12.8 % (11.6-14.6); RBC Distribution Width SD 41.8 fl (35.1-43.9); Red Blood Count 4.79 M/mm3 (4.6-6.2); White Blood Count 5.8 K/mm3 (4.4-11.0)
[2023-11-17 18:06] LABS: ALB/GLOB Ratio 1.5 RATIO (0.9-2.4); AST(SGOT) 12 U/L (15-37); Alanine Aminotransfer ALT/SGPT 21 U/L (16-61); Alkaline Phosphatase 80 U/L (45-117); Anion Gap 6 (5-15); BUN 21 mg/dL (7-18); BUN/Creat Ratio 18.1 RATIO (10-20); Calcium,Total 9.3 mg/dL (8.5-10.1); Chloride 108 mmol/L (98-107); Cholesterol 133 mg/dL (200); Creatinine, Serum 1.16 mg/dL (0.70-1.30); EST Glomerular Filtration Rate 68 mL/min (>60); Est Glom Filt Rate - Afr Amer 82 mL/min (>60); Globulin 2.7 g/dL (2.2-4.2); Glucose 141 mg/dL (74-106); High Density Lipoprotein 39 mg/dL; Magnesium 2.2 mg/dL (1.6-2.6); Potassium 4.3 mmol/L (3.5-5.1); Protein, Total 6.7 g/dL (6.4-8.2); Sodium Level 141 mmol/L (136-145); Thyroid Stim Hormone (TSH) 1.53 uIU/mL (0.358-3.74); Triglycerides 125 mg/dL; Very Low Density Lipoprotein 25 mg/dL (5-40)
[2023-11-17 18:08] LABS: Color, Urine Yellow (Yellow); Glucose, Dipstick Normal (Normal); Ketone-Dipstick Negative (Negative); Leukocyte Esterase-Dipstick Negative /ul (Negative); Nitrite-Dipstick Negative (Negative); Occult Blood-Urine Negative /ul (Negative); Protein-Dipstick Negative (Negative); Specific Gravity, Urine 1.025 (1.002-1.030); Urine Bilirubin Dipstick Negative (Negative); Urine Clarity Sl. Cloudy (Clear); Urine Urobilinogen Normal (Normal)
[2023-11-17 18:36] LABS: Mucous, Urine 1+ /hpf (<or=2+); Uric Acid Crystals Ur 3+ /hpf (<or=1+)
[2023-11-17 18:37] LABS: Bacteria 1+ /hpf (None Seen); Red Blood Cells-Urine 0-5 SEEN /hpf (0-5); White Blood Cells 0 SEEN /hpf (0-5)
[2023-11-21 10:49] LABS: Hemoglobin A1c 5.2 % (3.8-5.6)
== END | disposition home or self-care (01) ==
PROVIDERS: PCP Family Medicine; Visit Provider Family Medicine
DX: R73.09 Other abnormal glucose (principal); I10 Essential (primary) hypertension
CPT/HCPCS: 36415; 80053; 80061; 81001; 83036; 83735; 84443; 85025

== ENCOUNTER → 2024-04-05 | Outpatient (CLI) | payer BC, SELFPAY ==
[2024-04-05 14:30] LABS: Mucous, Urine 0 SEEN /hpf (<or=2+); Red Blood Cells-Urine 0 SEEN /hpf (0-5); Squamous Epithelial Cells - UA 0 SEEN /hpf (0-5)
[2024-04-05 17:34] LABS: Absolute Lymphocyte Count 1.37 X10^3/uL (0.83-4.51); Absolute Neutrophil Count 3.8 X10^3/uL (2.0-7.7); Basophil# 0.04 X10^3/uL; Basophil% 0.7 % (0-1); Eosinophil# 0.13 X10^3/uL; Eosinophils% 2.2 % (0-5); Hematocrit 42.6 % (40-54); Hemoglobin 14.3 g/dL (13.0-16.5); Lymphocyte # 1.37 X10^3/ul (0.83-4.51); Lymphocyte % 23.1 % (19-41); Mean Corp Hgb Conc 33.6 g/dL (32-36); Mean Corpuscular Hgb 29.9 pg (27.0-32.0); Mean Corpuscular Volume 89.1 fL (80-94); Mean Platelet Vol. 11.9 fl (6.2-12.0); Monocyte# 0.53 X10^3/uL; Monocyte% 8.9 % (0-10); NRBC Flagged by Analyzer 0 % (0-5); Neutrophil # 3.83 X10^3/uL (2.7-7.7); Neutrophil % 64.6 % (47-70); Platelet Count 175 K/mm3 (150-450); RBC Distribution Width CV 13.1 % (11.6-14.6); RBC Distribution Width SD 42.6 fl (35.1-43.9); Red Blood Count 4.78 M/mm3 (4.6-6.2); White Blood Count 5.9 K/mm3 (4.4-11.0)
[2024-04-05 17:55] LABS: ALB/GLOB Ratio 1.5 RATIO (0.9-2.4); AST(SGOT) 18 U/L (15-37); Alanine Aminotransfer ALT/SGPT 32 U/L (16-61); Alkaline Phosphatase 66 U/L (45-117); Anion Gap 6 (5-15); BUN 19 mg/dL (7-18); BUN/Creat Ratio 18.3 RATIO (10-20); Calcium,Total 9.1 mg/dL (8.5-10.1); Chloride 105 mmol/L (98-107); Creatinine, Serum 1.04 mg/dL (0.70-1.30); EST Glomerular Filtration Rate 77 mL/min (>60); Est Glom Filt Rate - Afr Amer 93 mL/min (>60); Globulin 2.7 g/dL (2.2-4.2); Glucose 95 mg/dL (74-106); Potassium 3.7 mmol/L (3.5-5.1); Protein, Total 6.7 g/dL (6.4-8.2); Sodium Level 139 mmol/L (136-145)
[2024-04-05 18:24] LABS: Color, Urine Yellow (Yellow); Glucose, Dipstick Normal (Normal); Ketone-Dipstick Negative (Negative); Leukocyte Esterase-Dipstick 25 /ul (Negative); Nitrite-Dipstick Negative (Negative); Occult Blood-Urine Negative /ul (Negative); Protein-Dipstick 15 mg/dl (Negative); Specific Gravity, Urine 1.025 (1.002-1.030); Urine Bilirubin Dipstick Negative (Negative); Urine Clarity Sl. Cloudy (Clear); Urine Urobilinogen Normal (Normal)
[2024-04-05 18:59] LABS: Bacteria RARE /hpf (None Seen); White Blood Cells 0-5 SEEN /hpf (0-5)
== END | disposition home or self-care (01) ==
LOC: MFPLAB 14:25
PROVIDERS: PCP Family Medicine; Referring Provider Family Medicine; Visit Provider Family Medicine
DX: I10 Essential (primary) hypertension (principal)
CPT/HCPCS: 36415; 80053; 81001; 85025

== ENCOUNTER → 2025-03-05 | Outpatient (CLI) | payer BC, SELFPAY ==
[2025-03-05 17:39] LABS: Hematocrit 41.2 % (40-54); Hemoglobin 13.8 g/dL (13.0-16.5); Immature Granulocytes Count 0.030 X10^3/uL (0.0-0.0); Mean Corp Hgb Conc 33.5 g/dL (32-36); Mean Corpuscular Volume 90.9 fL (80-94); Mean Platelet Vol. 11.1 fl (6.2-12.0); NRBC Flagged by Analyzer 0 % (0-5); Platelet Count 151 K/mm3 (150-450); RBC Distribution Width CV 12.7 % (11.6-14.6); RBC Distribution Width SD 41.8 fl (35.1-43.9); Red Blood Count 4.53 M/mm3 (4.6-6.2); White Blood Count 6.5 K/mm3 (4.4-11.0)
[2025-03-05 18:43] LABS: AST(SGOT) 23 U/L (<=37); Alanine Aminotransfer ALT/SGPT 25 U/L (<=46); Albumin, Serum 4.3 g/dL (3.4-4.8); Alkaline Phosphatase 66 U/L (40-129); Anion Gap 11 (5-15); BUN 22 mg/dL (4-19); BUN/Creat Ratio 23.7 RATIO (10-20); Calcium,Total 9.3 mg/dL (7.6-11.0); Carbon Dioxide 27.2 mmol/L (21.0-32.0); Chloride 104 mmol/L (98-108); Cholesterol 147 mg/dL (<=200); Globulin 2.2 g/dL (2.2-4.2); Glucose 105 mg/dL (70-99); Low Density Lipoprotein Calc. 82 mg/dL; Magnesium 2.1 mg/dL (1.5-2.2); Potassium 4.2 mmol/L (3.3-5.1); Triglycerides 147 mg/dL; Very Low Density Lipoprotein 29 mg/dL (5-40); cholesterol:hdl ratio screen 3.79
== END | disposition home or self-care (01) ==
LOC: MTLAB 16:53
PROVIDERS: PCP Family Medicine; Referring Provider Family Medicine; Visit Provider Family Medicine
DX: R73.09 Other abnormal glucose (principal); I10 Essential (primary) hypertension
CPT/HCPCS: 36415; 80053; 80061; 83036; 83735; 84443; 85025